=== PATIENT | female | born 1945 | race Caucasian/White ===

== ENCOUNTER 2017-06-04 08:02 | Inpatient (IN) | payer OTHER ==
[2017-06-04] MEDS: TRANEXAMIC ACID 1,000 MG in D5W 100 ML AT CLOSURE X1 IVPB
[2017-06-04] MEDS: CEFAZOLIN 2 GM/50 ML (PMX) 50 ML IVPB (08:30)
[2017-06-04] MEDS: LACTATED RINGER'S 1,000 ML IV* (08:30)
[2017-06-04 09:08] LABS: ADD MAN DIFF? NO
[2017-06-04 09:13] LABS: BASOPHILS % 0.8 % (0.0-2.0); EOSINOPHILS # 0.1 10^3/ul (0.0-0.5); EOSINOPHILS % 1.3 % (0.0-7.0); HEMATOCRIT 34.3 % (37.0-47.0); HEMOGLOBIN 11.6 g/dl (12.0-16.0); LYMPHOCYTES % 49.9 % (15.0-51.0); MEAN CORPUSCULAR HEMOGLOBIN 30.6 pg (29.0-33.0); MEAN CORPUSCULAR HGB CONC 33.8 g/dl (32.0-37.0); MEAN CORPUSCULAR VOLUME 90.5 fl (82.0-101.0); MEAN PLATELET VOLUME 9.6 fl (7.4-10.4); MONOCYTE # 0.4 10^3/ul (0.3-0.9); MONOCYTES % 10.6 % (0.0-11.0); NEUTROPHIL # 1.5 10^3/ul (1.6-7.5); NEUTROPHILS % 37.4 % (39.0-77.0); PLATELET COUNT 158 10^3/UL (140-415); RED BLOOD COUNT 3.79 10^6/ul (4.20-5.40); RED CELL DISTRIBUTION WIDTH 12.3 % (11.5-14.5)
[2017-06-04 09:24] LABS: HOLD TRANSMISSIONS 1
[2017-06-04 09:41] LABS: INR 0.97; PARTIAL THROMBOPLASTIN TIME 25.2 Sec (25.0-35.0)
[2017-06-04 09:44] LABS: ALANINE AMINOTRANSFERASE 34 IU/L (13-69); ALBUMIN 3.8 g/dl (3.3-4.9); ALBUMIN/GLOBULIN RATIO 1.26; ALKALINE PHOSPHATASE 75 IU/L (42-121); ANION GAP 12 (8-16); ASPARTATE AMINO TRANSFERASE 37 IU/L (15-46); BILIRUBIN,INDIRECT 0.3 mg/dl (0-1.1); BILIRUBIN,TOTAL 0.3 mg/dl (0.2-1.3); CARBON DIOXIDE 30 mmol/L (21-31); CHLORIDE 107 mmol/L (97-110); GLUCOSE 86 mg/dl (70-220); TOTAL PROTEIN 6.8 g/dl (6.1-8.1)
[2017-06-04 09:45] LABS: BLOOD UREA NITROGEN 18 mg/dl (7-20); CALCIUM 9.2 mg/dl (8.4-10.2); POTASSIUM 4.3 mmol/L (3.5-5.1); SODIUM 145 mmol/L (135-144)
[2017-06-04] MEDS ORDERED: BUPIVACAINE 0.75%/DEXT (SPINAL) 2 ML INJ (10:54)
[2017-06-04] MEDS ORDERED: LIDOCAINE 100 MG SYRINGE (11:30)
[2017-06-04] MEDS ORDERED: ROCURONIUM 50 MG INJ (11:30)
[2017-06-04] MEDS ORDERED: SUCCINYLCHOLINE CHLORIDE 100 MG/5 ML SYG IV (11:30)
[2017-06-04] MEDS ORDERED: CEFAZOLIN 1 GM INJ (11:30)
[2017-06-04] MEDS: TRANEXAMIC ACID 1,000 MG in D5W 100 ML AT INCISION X1 IVPB (11:30)
[2017-06-04] MEDS ORDERED: PROPOFOL 20 ML (11:30)
[2017-06-04] MEDS ORDERED: SUGAMMADEX SODIUM 200 MG/2 ML VIAL IV (11:30)
[2017-06-04] MEDS ORDERED: FENTAnyl 50 MCG/ML VIAL (11:57)
[2017-06-04] MEDS: POLYMYXIN B 500000 UNIT INJ (12:00)
[2017-06-04] MEDS: BACITRACIN 50000 UNITS INJ (12:00)
[2017-06-04] MEDS ORDERED: BETHANECHOL 25 MG TAB PO (13:00)
[2017-06-04] MEDS ORDERED: BISACODYL 10 MG SUPP PR (13:00)
[2017-06-04] MEDS ORDERED: TRIMETHOBENZAMIDE 100 MG/ML VIAL IM (13:00)
[2017-06-04] MEDS ORDERED: SENNA/DOCUSATE NA (8.6MG/50MG) TAB PO (13:00)
[2017-06-04] MEDS ORDERED: NALOXONE (0.4 MG/ML) INJ IV (13:00)
[2017-06-04] MEDS ORDERED: NA PHOSPHATE/BIPHOS 133 ML ENEMA PR (13:00)
[2017-06-04] MEDS ORDERED: ZOLPIDEM 5 MG TAB PO (13:00)
[2017-06-04] MEDS ORDERED: oxyCODONE 5 MG TAB PO (13:00)
[2017-06-04] MEDS ORDERED: DIPHENHYDRAMINE 50 MG INJ IM (13:00)
[2017-06-04] MEDS ORDERED: NACL 0.9% 3 ML SYG IV (13:00)
[2017-06-04] MEDS ORDERED: HYDROmorphONE (0.2 MG/ML) 10ML SYG IV ×2 (13:28→13:30)
[2017-06-04] MEDS ORDERED: ONDANSETRON 4 MG INJ IV (13:30)
[2017-06-04] MEDS ORDERED: ALBUTEROL 0.083% (NEB) 2.5 MG/3 ML AMP HHN (13:30)
[2017-06-04] MEDS ORDERED: FENTAnyl 50 MCG/ML VIAL IV (13:30)
[2017-06-04] MEDS ORDERED: LABETALOL HCL 20MG INJ IV (13:30)
[2017-06-04] MEDS ORDERED: DIPHENHYDRAMINE 50 MG INJ IV (13:30)
[2017-06-04] MEDS ORDERED: METOCLOPRAMIDE 10 MG INJ IV (13:30)
[2017-06-04] MEDS ORDERED: MEPERIDINE 25 MG INJ IV (13:30)
[2017-06-04] MEDS: HYDROmorphONE (0.2 MG/ML) 10ML SYG IV ×3 (13:43→14:17)
[2017-06-04] MEDS: ONDANSETRON 4 MG INJ IV ×2 (13:45→18:07)
[2017-06-04] MEDS: FENTAnyl 50 MCG/ML VIAL IV (13:46)
[2017-06-04] MEDS: ASPIRIN (EC) 325 MG TAB PO (14:09)
[2017-06-04] MEDS: DOCUSATE SODIUM 100 MG CAP PO (14:09)
[2017-06-04] MEDS: CEFAZOLIN 1 GM/50 ML (PMX) 50 ML IVPB ×2 (14:09→20:42)
[2017-06-04] MEDS: SOD CHLORIDE 0.9% 1,000 ML IV (14:58)
[2017-06-04] MEDS: SOD CHLORIDE 0.45% 1,000 ML IV (17:00)
[2017-06-04] MEDS: oxyCODONE 5 MG TAB PO ×2 (17:30→20:41)
[2017-06-04 19:09] LABS: ADD UMIC YES; UR ASCORBIC ACID NEGATIVE (NEGATIVE); UR BILIRUBIN (Dip) NEGATIVE (NEGATIVE); UR BLOOD (Dip) 1+ mg/dL (NEGATIVE); UR CLARITY CLEAR (CLEAR); UR COLOR YELLOW (YELLOW); UR GLUCOSE (Dip) NEGATIVE (NEGATIVE); UR KETONES (Dip) NEGATIVE (NEGATIVE); UR LEUKOCYTE ESTERASE (Dip) NEGATIVE Leu/ul (NEGATIVE); UR NITRITE (Dip) NEGATIVE (NEGATIVE); UR RBC 3 /HPF (0-5); UR SPECIFIC GRAVITY (Dip) 1.019 (1.003-1.030); UR TOTAL PROTEIN (Dip) NEGATIVE (NEGATIVE); UR UROBILINOGEN (Dip) NEGATIVE (NEGATIVE); UR WBC 0 /HPF (0-5)
[2017-06-04] MEDS: ATORVASTATIN 10 MG TAB PO (20:42)
[2017-06-04] MEDS: GABAPENTIN 100 MG CAP PO (20:42)
[2017-06-05] MEDS: ONDANSETRON 4 MG INJ IV ×2 (00:03→07:05)
[2017-06-05] MEDS: oxyCODONE 5 MG TAB PO (01:31)
[2017-06-05] MEDS: SOD CHLORIDE 0.45% 1,000 ML IV ×3 (02:21→23:06)
[2017-06-05] MEDS: SOD CHLORIDE 0.9% 1,000 ML IV (03:12)
[2017-06-05] MEDS: SOD CHLORIDE 0.9% 500 ML IV (03:13)
[2017-06-05] MEDS: CEFAZOLIN 1 GM/50 ML (PMX) 50 ML IVPB (05:11)
[2017-06-05 05:12] LABS: WHITE BLOOD COUNT 7.1 10^3/ul (4.8-10.8)
[2017-06-05 05:12] LABS: ADD MAN DIFF? NO; BASOPHILS % 0.1 % (0.0-2.0); EOSINOPHILS % 0.1 % (0.0-7.0); HEMATOCRIT 26.4 % (37.0-47.0); HEMOGLOBIN 8.6 g/dl (12.0-16.0); LYMPHOCYTES # 1.4 10^3/ul (0.8-2.9); LYMPHOCYTES % 19.7 % (15.0-51.0); MEAN CORPUSCULAR HGB CONC 32.6 g/dl (32.0-37.0); MEAN PLATELET VOLUME 10.4 fl (7.4-10.4); MONOCYTE # 0.7 10^3/ul (0.3-0.9); MONOCYTES % 9.2 % (0.0-11.0); NEUTROPHILS % 70.6 % (39.0-77.0); PLATELET COUNT 108 10^3/UL (140-415); RED BLOOD COUNT 2.87 10^6/ul (4.20-5.40); RED CELL DISTRIBUTION WIDTH 12.6 % (11.5-14.5)
[2017-06-05] MEDS: PANTOPRAZOLE (EC) 40 MG TAB PO (05:12)
[2017-06-05 05:40] LABS: IRON 28 ug/dl (35-150)
[2017-06-05 05:51] LABS: % IRON SATURATION 13 % SAT (22-52); TOTAL IRON BINDING CAPACITY 212 ug/dl (241-421)
[2017-06-05 05:55] LABS: ANION GAP 10 (8-16); BLOOD UREA NITROGEN 15 mg/dl (7-20); CALCIUM 7.8 mg/dl (8.4-10.2); CARBON DIOXIDE 26 mmol/L (21-31); CHLORIDE 110 mmol/L (97-110); GLUCOSE 101 mg/dl (70-220); POTASSIUM 3.8 mmol/L (3.5-5.1); SODIUM 142 mmol/L (135-144)
[2017-06-05] MEDS: LORAZEPAM 2 MG INJ IV (06:56)
[2017-06-05] MEDS: GABAPENTIN 100 MG CAP PO ×3 (06:56→21:02)
[2017-06-05] MEDS: LEVOTHYROXINE 112 MCG TAB PO (07:04)
[2017-06-05] MEDS: CELECOXIB 200 MG CAP PO ×2 (09:26→21:02)
[2017-06-05] MEDS: ASPIRIN (EC) 325 MG TAB PO (09:28)
[2017-06-05] MEDS: ASPIRIN (EC) 81 MG TAB PO (09:29)
[2017-06-05] MEDS: DOCUSATE SODIUM 100 MG CAP PO ×2 (09:32→21:01)
[2017-06-05] MEDS: MULTIVITAMINS THERAPEUTIC TAB PO (09:32)
[2017-06-05] MEDS: CALCIUM/VITAMIN D (500/200) TAB PO (09:32)
[2017-06-05] MEDS: CITALOPRAM 20 MG TAB PO (09:32)
[2017-06-05] MEDS: FERROUS FUMARATE (SR) TAB PO ×2 (09:32→21:02)
[2017-06-05] MEDS: FISH OIL 1,000 MG CAP PO (09:32)
[2017-06-05 10:04] LABS: MAGNESIUM 1.8 mg/dl (1.7-2.5)
[2017-06-05 10:05] LABS: CHOLESTEROL 108 mg/dl (100-200)
[2017-06-05 10:05] LABS: CHOL/HDL RATIO 1.8 RATIO; HDL CHOLESTEROL 59 mg/dl (33-92); LDL CHOLESTEROL,CALCULATED 40 mg/dl; TRIGLYCERIDES 45 mg/dl (0-149)
[2017-06-05] MEDS: BACLOFEN 10 MG TAB PO (13:01)
[2017-06-05] MEDS: KETOROLAC 15 MG INJ IV (16:10)
[2017-06-05] MEDS: BACLOFEN 10 MG TAB GTB (21:02)
[2017-06-05] MEDS: ATORVASTATIN 10 MG TAB PO (21:02)
[2017-06-05] MEDS: CELECOXIB 100 MG CAP PO (23:03)
[2017-06-06 05:00] LABS: ADD MAN DIFF? NO
[2017-06-06 05:05] LABS: BASOPHILS % 0.2 % (0.0-2.0); EOSINOPHILS % 0.1 % (0.0-7.0); HEMATOCRIT 25.4 % (37.0-47.0); HEMOGLOBIN 8.5 g/dl (12.0-16.0); LYMPHOCYTES # 1.3 10^3/ul (0.8-2.9); LYMPHOCYTES % 15.3 % (15.0-51.0); MEAN CORPUSCULAR HEMOGLOBIN 30.4 pg (29.0-33.0); MEAN CORPUSCULAR HGB CONC 33.5 g/dl (32.0-37.0); MEAN CORPUSCULAR VOLUME 90.7 fl (82.0-101.0); MEAN PLATELET VOLUME 10.5 fl (7.4-10.4); MONOCYTE # 0.7 10^3/ul (0.3-0.9); MONOCYTES % 8.5 % (0.0-11.0); NEUTROPHIL # 6.6 10^3/ul (1.6-7.5); NEUTROPHILS % 75.8 % (39.0-77.0); PLATELET COUNT 103 10^3/UL (140-415); RED CELL DISTRIBUTION WIDTH 12.7 % (11.5-14.5)
[2017-06-06 05:05] LABS: WHITE BLOOD COUNT 8.7 10^3/ul (4.8-10.8)
[2017-06-06 05:07] LABS: POSITIVE DIFF @See below
[2017-06-06] MEDS: PANTOPRAZOLE (EC) 40 MG TAB PO (05:26)
[2017-06-06 05:28] LABS: ANION GAP 11 (8-16); BLOOD UREA NITROGEN 11 mg/dl (7-20); CALCIUM 8.2 mg/dl (8.4-10.2); CARBON DIOXIDE 27 mmol/L (21-31); CHLORIDE 109 mmol/L (97-110); GLUCOSE 127 mg/dl (70-220); POTASSIUM 3.9 mmol/L (3.5-5.1); SODIUM 143 mmol/L (135-144)
[2017-06-06] MEDS: LEVOTHYROXINE 112 MCG TAB PO (06:37)
[2017-06-06] MEDS: ASPIRIN (EC) 81 MG TAB PO (09:00)
[2017-06-06] MEDS: FERROUS FUMARATE (SR) TAB PO ×2 (09:38→20:32)
[2017-06-06] MEDS: ASPIRIN (EC) 325 MG TAB PO (09:38)
[2017-06-06] MEDS: BACLOFEN 10 MG TAB GTB ×2 (09:38→12:45)
[2017-06-06] MEDS: DOCUSATE SODIUM 100 MG CAP PO ×2 (09:38→20:32)
[2017-06-06] MEDS: MULTIVITAMINS THERAPEUTIC TAB PO (09:38)
[2017-06-06] MEDS: CALCIUM/VITAMIN D (500/200) TAB PO (09:38)
[2017-06-06] MEDS: FISH OIL 1,000 MG CAP PO (09:38)
[2017-06-06] MEDS: GABAPENTIN 100 MG CAP PO ×2 (09:38→20:32)
[2017-06-06] MEDS: CELECOXIB 100 MG CAP PO ×2 (09:39→20:32)
[2017-06-06] MEDS: CITALOPRAM 20 MG TAB PO (09:39)
[2017-06-06] MEDS: ALPRAZOLAM 0.5 MG TAB PO (15:57)
[2017-06-06] MEDS: ATORVASTATIN 10 MG TAB PO (20:32)
[2017-06-06] MEDS: ACETAMINOPHEN 325 MG TAB PO (21:18)
[2017-06-07 05:36] LABS: ADD MAN DIFF? NO
[2017-06-07 05:43] LABS: ABNORMAL IP MESSAGE 1; BASOPHILS % 0.1 % (0.0-2.0); EOSINOPHILS # 0.1 10^3/ul (0.0-0.5); EOSINOPHILS % 1.3 % (0.0-7.0); HEMATOCRIT 25.6 % (37.0-47.0); HEMOGLOBIN 8.6 g/dl (12.0-16.0); LYMPHOCYTES # 1.4 10^3/ul (0.8-2.9); LYMPHOCYTES % 19.9 % (15.0-51.0); MEAN CORPUSCULAR HEMOGLOBIN 30.8 pg (29.0-33.0); MEAN CORPUSCULAR HGB CONC 33.6 g/dl (32.0-37.0); MEAN CORPUSCULAR VOLUME 91.8 fl (82.0-101.0); MONOCYTE # 0.6 10^3/ul (0.3-0.9); NEUTROPHIL # 4.9 10^3/ul (1.6-7.5); NEUTROPHILS % 70.4 % (39.0-77.0); PLATELET COUNT 98 10^3/UL (140-415); RED BLOOD COUNT 2.79 10^6/ul (4.20-5.40); RED CELL DISTRIBUTION WIDTH 12.6 % (11.5-14.5)
[2017-06-07 05:59] LABS: POSITIVE DIFF @See below
[2017-06-07 06:20] LABS: ANION GAP 12 (8-16); BLOOD UREA NITROGEN 13 mg/dl (7-20); CALCIUM 8.3 mg/dl (8.4-10.2); CARBON DIOXIDE 30 mmol/L (21-31); CHLORIDE 109 mmol/L (97-110); CREATININE 0.89 mg/dl (0.44-1.00); GLUCOSE 114 mg/dl (70-220); POTASSIUM 3.5 mmol/L (3.5-5.1); SODIUM 147 mmol/L (135-144)
[2017-06-07] MEDS: PANTOPRAZOLE (EC) 40 MG TAB PO (06:42)
[2017-06-07] MEDS: LEVOTHYROXINE 112 MCG TAB PO (06:43)
[2017-06-07] MEDS: MAGNESIUM HYDROXIDE 30ML CUP PO (06:43)
[2017-06-07] MEDS: ACETAMINOPHEN 325 MG TAB PO (08:39)
[2017-06-07] MEDS: FISH OIL 1,000 MG CAP PO (08:39)
[2017-06-07] MEDS: DOCUSATE SODIUM 100 MG CAP PO (08:39)
[2017-06-07] MEDS: CELECOXIB 100 MG CAP PO (08:39)
[2017-06-07] MEDS: FERROUS FUMARATE (SR) TAB PO (08:39)
[2017-06-07] MEDS: MULTIVITAMINS THERAPEUTIC TAB PO (08:39)
[2017-06-07] MEDS: GABAPENTIN 100 MG CAP PO (08:39)
[2017-06-07] MEDS: CITALOPRAM 20 MG TAB PO (08:39)
[2017-06-07] MEDS: CALCIUM/VITAMIN D (500/200) TAB PO (08:39)
[2017-06-07] MEDS: ASPIRIN (EC) 325 MG TAB PO (08:39)
[2017-06-07] MEDS: ASPIRIN (EC) 81 MG TAB PO (08:40)
[2017-06-07] MEDS: ALPRAZOLAM 0.5 MG TAB PO (15:57)
[2017-06-08] MEDS ORDERED: FERROUS SULFATE (EC) 325 MG TAB PO (09:00)
== END 2017-06-07 17:55 | DRG 470 ==
LOC: REC 08:02 → MS1 14:03
PROC: 0SR902A Replacement of Right Hip Joint with Metal on Polyethylene Synthetic Substitute, Uncemented, Open Approach (ICD-10-PCS; principal; 2017-06-04 10:30)
DX: M16.11 Unilateral primary osteoarthritis, right hip (principal); E87.2 Acidosis; E03.9 Hypothyroidism, unspecified; F32.9 Major depressive disorder, single episode, unspecified; M81.0 Age-related osteoporosis without current pathological fracture; E78.5 Hyperlipidemia, unspecified; N32.89 Other specified disorders of bladder; G25.1 Drug-induced tremor; T42.4X5A Adverse effect of benzodiazepines, initial encounter; Y92.230 Patient room in hospital as the place of occurrence of the external cause
CPT/HCPCS: 70551; 73530; 80048; 80053; 80061; 81001; 83540; 83735; 84443; 85025; 85610; 85730; 86850; 86900; 86901; 87081; 88304; 97110; 97116; 97165; 97530